=== PATIENT | female | born 1945 | race Caucasian/White ===

== ENCOUNTER 2021-12-29 09:28 | Outpatient (CLI) | payer MEDICARE, BC ==
[~2021-12-29 09:28] MED LIST: ASPI-1 PO; ATOR40TA PO; CHOL500061 PO; DIPH25CA83 PO; DISO100C4 PO; FEBU40TA PO; HYDR25TA4 PO; NAPR-1170 PO; NEBI20TA2 PO; ONQPUMP ADDCANAL; TRAM50TA2 PO
== END 2021-12-29 23:59 | disposition home or self-care (01) ==
LOC: RAD 09:28
PROVIDERS: ATTEND Internal Medicine Cardiovascular Disease
DX: I08.0 Rheumatic disorders of both mitral and aortic valves (principal)
CPT/HCPCS: 93306

== ENCOUNTER 2022-09-06 17:16 | Emergency (ER) | payer MEDICARE, BC ==
[~2022-09-06] VITALS: Ht 152.4 cm; Wt 75.0 kg
[2022-09-06 17:50] LABS: BASOPHILS % (AUTO) 0.4 % (0-1); EOSINOPHILS # (AUTO) 0.1 X10'3 (0-0.9); EOSINOPHILS % (AUTO) 1.8 % (0-6); HEMOGLOBIN 12.9 g/dl (12.0-16.0); LYMPHOCYTES # (AUTO) 0.7 X10'3 (1.1-4.8); LYMPHOCYTES % (AUTO) 8.7 % (21-51); MEAN CORPUSCULAR HEMOGLOBIN 30.9 PG (27.0-31.0); MEAN CORPUSCULAR HGB CONC 33.1 g/dL (33.0-36.5); MEAN CORPUSCULAR VOLUME 93.5 FL (78-98); MEAN PLATELET VOLUME 7.7 FL (7.4-10.4); MONOCYTES # (AUTO) 0.4 X10'3 (0-0.9); MONOCYTES % (AUTO) 4.9 % (2-12); NEUTROPHILS # (AUTO) 6.7 X10'3 (1.8-7.7); NEUTROPHILS % (AUTO) 84.2 % (42-75); PLATELET COUNT 205 X10'3 (140-440); RED BLOOD COUNT 4.17 X10'6 (4.20-5.60); RED CELL DISTRIBUTION WIDTH 14.2 % (11.5-14.5)
[2022-09-06 18:03] LABS: ALANINE AMINOTRANSFERASE 19 U/L (12-78); ALBUMIN 3.8 G/DL (3.4-5.0); ALBUMIN/GLOBULIN RATIO 1.2 (1.1-1.5); ALKALINE PHOSPHATASE 85 IU/L (46-116); ANION GAP 7 (8-16); ASPARTATE AMINO TRANSFERASE 21 U/L (10-37); BILIRUBIN,TOTAL 0.6 MG/DL (0.1-1.0); BLOOD UREA NITROGEN 15 MG/DL (7-18); BUN/CREATININE RATIO 15.2 (6.6-38.0); CALCIUM 9.2 MG/DL (8.5-10.1); CHLORIDE 102 MMOL/L (99-107); CREATININE 0.99 MG/DL (0.40-0.90); GLUCOSE 126 MG/DL (70-104); POTASSIUM 3.2 MMOL/L (3.5-5.1); SODIUM 139 MMOL/L (135-145); TOTAL CARBON DIOXIDE 29.7 MMOL/L (24-32); TOTAL PROTEIN 6.9 G/DL (6.4-8.2); eGFR 55 ML/MIN
[2022-09-06 18:10] LABS: MAGNESIUM 1.8 MG/DL (1.5-2.4)
[2022-09-06] MEDS ORDERED: potassium Cl 20 mEq SR tablet PO STA (20:20)
--- NOTE | 2022-09-06 20:48 | NUR ---
placed magnet over defib to turn off defib per DR Chew. Magnet was unsuccessful in shutting off defib. Dr Chew aware. Paged Dr Vargas regarding malfuntioning to notify of pt complaint and to find out what brand defib was placed to call the company. Dr Vargas returned call and is speaking with Dr Chew
--- NOTE | 2022-09-06 20:56 | NUR ---
Dr Vargas requested that we reach out to Theodore fitzgerald at [phone]. Spoke with Theodore and we will be in to see pt
[2022-09-06 21:48] VITALS: BP 160/91
--- NOTE | 2022-09-06 21:48 | NUR ---
Theodore turned ACID off and pt will f/u with Dr Vargas in am
== END 2022-09-06 21:50 | disposition home or self-care (01) ==
LOC: ER 17:16
DX: T82.118A Breakdown (mechanical) of other cardiac electronic device, initial encounter (principal); Z79.899 Other long term (current) drug therapy
CPT/HCPCS: 36415; 71045; 80053; 83735; 83880; 84484; 85025; 93005; 99283; 99285

== ENCOUNTER 2024-04-05 08:54 | Outpatient (CLI) | payer MEDICARE, BC ==
[~2024-04-05 08:54] MED LIST changes: -NEBI20TA2 PO; +NEBI20TA4 PO
[2024-04-05 09:38] LABS: BASOPHILS % (AUTO) 0.9 % (0-1); EOSINOPHILS # (AUTO) 0.2 X10'3 (0-0.9); EOSINOPHILS % (AUTO) 4.3 % (0-6); HEMATOCRIT 39.6 % (35.0-45.0); HEMOGLOBIN 13.4 g/dl (12.0-16.0); LYMPHOCYTES # (AUTO) 0.9 X10'3 (1.1-4.8); LYMPHOCYTES % (AUTO) 19.2 % (21-51); MEAN CORPUSCULAR HEMOGLOBIN 31.9 PG (27.0-31.0); MEAN CORPUSCULAR HGB CONC 33.8 g/dL (33.0-36.5); MEAN CORPUSCULAR VOLUME 94.6 FL (78-98); MEAN PLATELET VOLUME 7.3 FL (7.4-10.4); MONOCYTES # (AUTO) 0.3 X10'3 (0-0.9); MONOCYTES % (AUTO) 6.4 % (2-12); NEUTROPHILS # (AUTO) 3.2 X10'3 (1.8-7.7); NEUTROPHILS % (AUTO) 69.2 % (42-75); PLATELET COUNT 290 X10'3 (140-440); RED BLOOD COUNT 4.18 X10'6 (4.20-5.60); RED CELL DISTRIBUTION WIDTH 13.7 % (11.5-14.5); WHITE BLOOD COUNT 4.6 X10'3 (4.5-11.0)
[2024-04-05 09:49] LABS: APTT 26 SECONDS (22-32); PROTHROMBIN TIME 10.7 SECONDS (9.0-12.0)
[2024-04-05 09:53] LABS: ALANINE AMINOTRANSFERASE 12 U/L (12-78); ALBUMIN 3.1 G/DL (3.4-5.0); ALBUMIN/GLOBULIN RATIO 1.1 (1.1-1.5); ALKALINE PHOSPHATASE 80 IU/L (46-116); ANION GAP 7 (8-16); ASPARTATE AMINO TRANSFERASE 14 U/L (10-37); BILIRUBIN,TOTAL 0.5 MG/DL (0.1-1.0); BLOOD UREA NITROGEN 13 MG/DL (7-18); BUN/CREATININE RATIO 14.6 (10.0-20.0); CALCIUM 8.5 MG/DL (8.5-10.1); CHLORIDE 106 MMOL/L (99-107); CREATININE 0.89 MG/DL (0.40-0.90); GLUCOSE 121 MG/DL (70-104); POTASSIUM 3.3 MMOL/L (3.5-5.1); SODIUM 140 MMOL/L (135-145); TOTAL CARBON DIOXIDE 26.6 MMOL/L (24-32); TOTAL PROTEIN 5.9 G/DL (6.4-8.2); eGFR 62 ML/MIN
[2024-04-05] MEDS ORDERED: IODIXANOL 320 MG/ML INFUS..BTL 100ML IV ONE (09:57)
[2024-04-05 10:00] LABS: PRO BRAIN NATRIURETIC PEPTIDE 3120 PG/ML (0-450)
== END 2024-04-05 23:59 | disposition home or self-care (01) ==
LOC: RAD 08:54
PROVIDERS: ATTEND Internal Medicine Cardiovascular Disease
DX: I35.0 Nonrheumatic aortic (valve) stenosis (principal); R06.02 Shortness of breath; I65.29 Occlusion and stenosis of unspecified carotid artery
CPT/HCPCS: 36415; 71046; 80053; 83880; 85025; 85610; 85730; Q9967

== ENCOUNTER 2024-04-06 14:57 | Outpatient (CLI) | payer MEDICARE, BC ==
[~2024-04-06] VITALS: Ht 152.4 cm; Wt 78.3 kg
[2024-04-06 15:47] VITALS: BP 151/70; PULSE 72; RESP 16; TEMP 96.2; O2SAT 96
== END 2024-04-06 23:59 | disposition home or self-care (01) ==
LOC: TAVR 14:57
PROVIDERS: ATTEND Internal Medicine Cardiovascular Disease
DX: I08.3 Combined rheumatic disorders of mitral, aortic and tricuspid valves (principal); R06.02 Shortness of breath; I65.29 Occlusion and stenosis of unspecified carotid artery; E78.2 Mixed hyperlipidemia; I10 Essential (primary) hypertension; I25.10 Atherosclerotic heart disease of native coronary artery without angina pectoris; I42.1 Obstructive hypertrophic cardiomyopathy; I70.0 Atherosclerosis of aorta; R07.89 Other chest pain; Z79.82 Long term (current) use of aspirin; Z79.899 Other long term (current) drug therapy; Z95.2 Presence of prosthetic heart valve; Z95.810 Presence of automatic (implantable) cardiac defibrillator; Z96.659 Presence of unspecified artificial knee joint
CPT/HCPCS: 71275; 74174; 75572; 93308

== ENCOUNTER 2024-04-10 10:26 | Day surgery (SDC) | payer MEDICARE, BC ==
[2024-04-07 13:20] LABS: BASOPHILS % (AUTO) 0.9 % (0-1); EOSINOPHILS # (AUTO) 0.2 X10'3 (0-0.9); EOSINOPHILS % (AUTO) 4.2 % (0-6); HEMATOCRIT 41.8 % (35.0-45.0); HEMOGLOBIN 13.9 g/dl (12.0-16.0); LYMPHOCYTES # (AUTO) 0.8 X10'3 (1.1-4.8); LYMPHOCYTES % (AUTO) 17.8 % (21-51); MEAN CORPUSCULAR HEMOGLOBIN 31.6 PG (27.0-31.0); MEAN CORPUSCULAR HGB CONC 33.2 g/dL (33.0-36.5); MEAN CORPUSCULAR VOLUME 95.1 FL (78-98); MEAN PLATELET VOLUME 7.2 FL (7.4-10.4); MONOCYTES # (AUTO) 0.3 X10'3 (0-0.9); MONOCYTES % (AUTO) 6.6 % (2-12); NEUTROPHILS # (AUTO) 3.2 X10'3 (1.8-7.7); NEUTROPHILS % (AUTO) 70.5 % (42-75); PLATELET COUNT 303 X10'3 (140-440); RED BLOOD COUNT 4.39 X10'6 (4.20-5.60); RED CELL DISTRIBUTION WIDTH 13.8 % (11.5-14.5); WHITE BLOOD COUNT 4.5 X10'3 (4.5-11.0)
[2024-04-07 13:21] LABS: APTT 26 SECONDS (22-32); PROTHROMBIN TIME 10.8 SECONDS (9.0-12.0)
[2024-04-07 13:28] LABS: ALBUMIN 3.2 G/DL (3.4-5.0); ANION GAP 2 (8-16); BLOOD UREA NITROGEN 7 MG/DL (7-18); CALCIUM 8.7 MG/DL (8.5-10.1); CHLORIDE 106 MMOL/L (99-107); CHOL/HDL RATIO 2.6 (0.00-4.99); CHOLESTEROL 158 MG/DL (0-200); CREATININE 0.87 MG/DL (0.40-0.90); GLUCOSE 90 MG/DL (70-104); HDL CHOLESTEROL 60 MG/DL (35-60); LDL CHOLESTEROL 85 MG/DL (50-100); POTASSIUM 3.3 MMOL/L (3.5-5.1); SODIUM 141 MMOL/L (135-145); TOTAL CARBON DIOXIDE 32.7 MMOL/L (24-32); TRIGLYCERIDES 64 MG/DL (20-135); eGFR 63 ML/MIN
[2024-04-10] VITALS (9 sets, daily range): BP systolic 118–150; BP diastolic 60–86; PULSE 70–73; RESP 12–15; TEMP 98.2; O2SAT 95–97
[~2024-04-10] VITALS: Ht 152.4 cm; Wt 78.3 kg
[2024-04-10] MEDS ORDERED: METO-395 PO (11:02)
[2024-04-10] MEDS ORDERED: VALA500T PO (11:02)
[2024-04-10] MEDS ORDERED: PANT40TA54 PO (11:02)
[2024-04-10] MEDS ORDERED: ESCI-8 PO (11:02)
[2024-04-10] MEDS ORDERED: FERR-119 PO (11:02)
[2024-04-10] MEDS ORDERED: [UNRECOGNIZED DRUG - CODE] (11:02)
[2024-04-10] MEDS ORDERED: iohexol 350MG/ML 100ml bottle IV ONE (11:51)
[2024-04-10] MEDS ORDERED: verapamil 2.5 mg/ml inj IV ONE (11:51)
[2024-04-10] MEDS ORDERED: LIDOcaine 1% (10mg/ml) 2ml vial ONE ×2 (11:51)
[2024-04-10] MEDS ORDERED: heparin 1,000unit/ml 10ml vial 10 ML ONE (11:51)
[2024-04-10] MEDS ORDERED: fentaNYL/PF 50MCG/1 ML 2ML syringe ONE (11:51)
[2024-04-10] MEDS ORDERED: midazolam 1 mg/ML 2ml injection ONE (11:51)
[2024-04-10] MEDS ORDERED: nitroGLYCERIN 500mcg/5mL D5W 5 ML IV ONE (11:52)
[2024-04-10] MEDS: normal saline 1,000 ML IV SCH (11:52)
[2024-04-10] MEDS: diphenhydrAMINE 25mg capsule PO PRN (11:52)
[2024-04-10] MEDS: LORazepam 0.5 MG tablet PO PRN (11:52)
[2024-04-10 13:19] LABS: ISTAT HGB ART 12.6 g/dl (12.0-16.0); ISTAT Hct ART 37 %PCV (35-45); ISTAT O2 SATURATION ARTERIAL 96 % (95-98); ISTAT SOURCE ART
[2024-04-10] MEDS ORDERED: HYDROcodone/acetaminophen 10/325mg tab PO PRN (14:10)
[2024-04-10] MEDS ORDERED: HYDROcodone/acetaminophen 5mg/325mg tablet PO PRN (14:10)
[2024-04-10 14:33] LABS: ISTAT HGB MIX 12.9 g/dl (12.0-16.0); ISTAT Hct MIX 38 %PCV (35-45); ISTAT O2 SATURATION MIX VENOUS 64 % (60-80); ISTAT SOURCE VEN
== END 2024-04-10 16:00 | disposition home or self-care (01) ==
LOC: SSTAY O 10:26
PROVIDERS: ATTEND Student in an Organized Health Care Education/Training Program
DX: I35.0 Nonrheumatic aortic (valve) stenosis (principal); I25.10 Atherosclerotic heart disease of native coronary artery without angina pectoris; R94.31 Abnormal electrocardiogram [ECG] [EKG]; I10 Essential (primary) hypertension; E78.00 Pure hypercholesterolemia, unspecified; I42.1 Obstructive hypertrophic cardiomyopathy; Z79.899 Other long term (current) drug therapy
CPT/HCPCS: 36415; 80048; 80061; 82803; 84132; 85014; 85025; 85610; 85730; 93005; 93456; 99152; A6258; A6402; A6449; C1751; C1769; C1894; J1644; J2250; J3010; J3490; J7030; Q0163; Q9967